=== PATIENT | female | born 1990 | race Hispanic/Latino ===

== ENCOUNTER 2018-04-12 16:10 | Emergency (ER) | payer MEDICAID ==
[2018-04-12 16:12] VITALS: BP 130/79; PULSE 93; RESP 18; TEMP 98.5; O2SAT 99
--- NOTE | 2018-04-12 18:03 | ED PDOC ---
HPI: Psych/Substance Abuse Time Seen by Provider: 04/12/18 16:38 Chief Complaint (Nursing): Psychiatric Evaluation Chief Complaint (Provider): Psychiatric Evaluation History Per: Patient History/Exam Limitations: no limitations Associated Symptoms: Depression, Suicidal Thoughts. denies: Suicidal Plan Additional Complaint(s): 27 y/o female brought in by EMS for suicidal ideation. Patient reports increased depression and thoughts of suicide since her fiance a year ago. She is homeless lives between friends and family. Patient continues to have suicidal ideation with no attempts recently. She states she is open to the idea of inpatient treatment. PMD: none provided Past Medical History Reviewed: Historical Data, Nursing Documentation, Vital Signs Vital Signs: Last Vital Signs Temp 98.5 F 04/12/18 16:12 Pulse 93 H 04/12/18 16:12 Resp 18 04/12/18 16:12 BP 130/79 04/12/18 16:12 Pulse Ox 99 04/12/18 16:12 - Medical History PMH: Anxiety, Bipolar Disorder, Depression, Post Traumatic Stress Disorder Denies: Chronic Kidney Disease - Surgical History Surgical History: No Surg Hx - Family History Family History: States: Unknown Family Hx - Social History Current smoker - smoking cessation education provided: No Alcohol: None Drugs: Denies - Allergies Allergies/Adverse Reactions: Allergies Allergy/AdvReac Type Severity Reaction Status Date / Time No Known Allergies Allergy Verified 04/12/18 16:12 Review of Systems ROS Statement: Except As Marked, All Systems Reviewed And Found Negative Psych: Positive for: Depression, Suicidal ideation. Negative for: Other (Suicidal attempts) Physical Exam - Reviewed Nursing Documentation Reviewed: Yes Vital Signs Reviewed: Yes - Physical Exam Appears: Positive for: Non-toxic, No Acute Distress Head Exam: Positive for: ATRAUMATIC, NORMOCEPHALIC Skin: Positive for: Normal Color, Warm, Dry Eye Exam: Positive for: Normal appearance, EOMI, PERRL Neck: Positive for: Normal, Painless ROM, Supple Cardiovascular/Chest: Positive for: Regular Rate, Rhythm. Negative for: Murmur Respiratory: Positive for: Normal Breath Sounds. Negative for: Respiratory Distress Gastrointestinal/Abdominal: Positive for: Normal Exam, Soft. Negative for: Tenderness Back: Positive for: Normal Inspection. Negative for: L CVA Tenderness, R CVA Tenderness Extremity: Positive for: Normal ROM. Negative for: Tenderness, Pedal Edema Neurologic/Psych: Positive for: Alert, Oriented (x3) - ECG O2 Sat by Pulse Oximetry: 99 (RA) Pulse Ox Interpretation: Normal Medical Decision Making Medical Decision Making: Time: 1638 MDM: 27 y/o female presents with depression and suicidal ideation --Crisis evaluation placed --Will send blood work and EKG if patient to be admitted 1836 Pt seen and evaluated by Crisis Team/Dr. Wolfe. Pt to be discharged and will follow up with therapist as previously scheduled. Scribe Attestation: Documented by Ariana Ybarra, acting as a scribe for Colette Hernández MD. Provider Scribe Attestation: All medical record entries made by the Scribe were at my direction and personally dictated by me. I have reviewed the chart and agree that the record accurately reflects my personal performance of the history, physical exam, medical decision making, and the department course for this patient. I have also personally directed, reviewed, and agree with the discharge instructions and disposition. Disposition - Clinical Impression Clinical Impression: Depression - Disposition Disposition: Routine/Home Disposition Time: 18:36 Condition: STABLE Additional Instructions: Follow up with psychiatrist. Return to the emergency department if you have thoughts of hurting yourself or others. Instructions: Depression, Adult (DC) Forms: [employer] (Malaysian) Print Language: ROMANIAN
== END 2018-04-12 18:51 | disposition home or self-care (01) ==
LOC: H.ER 16:10
DX: F32.9 Major depressive disorder, single episode, unspecified (principal); Z00.8 Encounter for other general examination